=== PATIENT | male | born 1950 | race Caucasian/White ===

== ENCOUNTER 2018-01-12 12:28 | Emergency (ER) | payer MEDICARE, OTHER ==
[2018-01-12 12:41] VITALS: RESP 20
--- NOTE | 2018-01-12 12:56 | ED ---
General Adult HPI - General Chief complaint: Recheck/Abnormal Lab/Rx Stated complaint: clogged peg tube Time Seen by Provider: 01/12/18 12:28 Source: patient, EMS, RN notes reviewed Mode of arrival: EMS - History of Present Illness Initial comments: This is a 67-year-old male who has a PEG tube he is brought in for evaluation of a plugged PEG tube. Apparently at the home he is at a try using Werners and other methods and could not free the clogged. - Related Data Home Medications Medication Instructions Recorded Confirmed Acetaminophen Tab [Tylenol Tab] 650 mg PEG/G-TUBE Q8H PRN 01/12/18 01/12/18 Acetaminophen Tab [Tylenol Tab] 650 mg PEG/G-TUBE TID@,,01/12/18 01/12/18 Albuterol Nebulized [Ventolin 2.5 mg INHALATION RT-Q6H PRN 01/12/18 01/12/18 Nebulized] Amantadine Hcl Syrup 50mg/5ml 100 mg PEG/G-TUBE BID 01/12/18 01/12/18 Apixaban [Eliquis] 5 mg PEG/G-TUBE BID 01/12/18 01/12/18 Cyclobenzaprine [Flexeril] 10 mg PEG/G-TUBE TID PRN 01/12/18 01/12/18 DULoxetine HCL [Cymbalta] 30 mg PEG/G-TUBE BID 01/12/18 01/12/18 Diltiazem Oral [Cardizem Oral] 60 mg PEG/G-TUBE QID@05,11,17,23 01/12/18 Docusate Oral Soln [Colace Oral 100 mg PEG/G-TUBE BID PRN 01/12/18 01/12/18 Soln] Gabapentin Oral Soln [Neurontin 100 mg PEG/G-TUBE TID@,,01/12/18 01/12/18 Oral Soln] Glucerna 1.5 Esteban 70 ml PEG/G-TUBE DIRECTED 01/12/18 01/12/18 Metoprolol Tartrate [Lopressor] 25 mg PEG/G-TUBE BID 01/12/18 01/12/18 Potassium Chloride ER [K-Dur 10] 10 meq PEG/G-TUBE HS 01/12/18 01/12/18 Thiamine [Vitamin B-1] 100 mg PEG/G-TUBE HS 01/12/18 01/12/18 levETIRAcetam 1,000 mg PEG/G-TUBE BID@07,19 01/12/18 01/12/18 traMADol HCl [Ultram] 50 mg PEG/G-TUBE Q48H 01/12/18 01/12/18 Allergies Allergy/AdvReac Type Severity Reaction Status Date / Time No Known Allergies Allergy Unverified 01/12/18 12:41 Review of Systems ROS Statement: Those systems with pertinent positive or pertinent negative responses have been documented in the HPI. ROS Other: All systems not noted in ROS Statement are negative. Past Medical History Past Medical History: Atrial Fibrillation, CVA/TIA, Diabetes Mellitus, Hypertension History of Any Multi-Drug Resistant Organisms: None Reported Additional Past Surgical History / Comment(s): Brain surgery, hip Past Psychological History: No Psychological Hx Reported Smoking Status: Former smoker Past Alcohol Use History: None Reported Past Drug Use History: None Reported General Exam - General Exam Comments Initial Comments: This is a well-developed well-nourished awake alert male General appearance: alert, in no apparent distress Head exam: Present: atraumatic, normocephalic, normal inspection Eye exam: Present: normal appearance, PERRL, EOMI. Absent: scleral icterus, conjunctival injection, periorbital swelling ENT exam: Present: normal exam, mucous membranes moist Neck exam: Present: normal inspection. Absent: tenderness, meningismus, lymphadenopathy Respiratory exam: Present: normal lung sounds bilaterally. Absent: respiratory distress, wheezes, rales, rhonchi, stridor Cardiovascular Exam: Present: regular rate, normal rhythm, normal heart sounds. Absent: systolic murmur, diastolic murmur, rubs, gallop, clicks GI/Abdominal exam: Present: soft, normal bowel sounds, other (PEG tube site appears to be intact no evidence of any drainage or erythema and infectious process). Absent: distended, tenderness, guarding, rebound, rigid Rectal exam: Present: deferred Extremities exam: Present: normal capillary refill Back exam: Absent: tenderness Neurological exam: Present: alert, CN II-XII intact Psychiatric exam: Present: normal affect, normal mood Skin exam: Present: warm, dry, intact, normal color. Absent: rash Course Vital Signs 01/12/18 12:37 Temperature 97.1 F L Pulse Rate 110 H Respiratory 20 Rate Blood Pressure 157/80 O2 Sat by Pulse 97 Oximetry Procedures - Procedures Initial comment: I was able to use a peritoneal dialysis catheter guidewire to unplug the PEG tube. Was able to flush 20 mL of Pepsi-Cola through the line with no leakage. The initial attempts a flushing failed on several attempts. Medical Decision Making - Medical Decision Making The patient PEG tube was cleared and flush is freely he will be discharged Disposition Clinical Impression: PEG tube malfunction Disposition: HOME SELF-CARE Condition: Good Instructions: How to Use and Care for Your PEG Tube (ED) Is patient prescribed a controlled substance at d/c from ED?: No Referrals: Kaycee Eric MD [Primary Care Provider] - 1-2 days
[2018-01-12 15:20] VITALS: BP 144/78; PULSE 91; TEMP 97.6
== END 2018-01-12 15:20 | disposition home or self-care (01) ==
LOC: EC 12:28
DX: K94.23 Gastrostomy malfunction (principal); I48.91 Unspecified atrial fibrillation; E11.9 Type 2 diabetes mellitus without complications; I10 Essential (primary) hypertension; Z86.73 Personal history of transient ischemic attack (TIA), and cerebral infarction without residual deficits; Z87.891 Personal history of nicotine dependence; Z79.01 Long term (current) use of anticoagulants; Z79.84 Long term (current) use of oral hypoglycemic drugs; Z79.899 Other long term (current) drug therapy
CPT/HCPCS: 99282

== ENCOUNTER 2018-01-17 19:44 | Emergency (ER) | payer MEDICARE, OTHER ==
[2018-01-17 19:52] VITALS: BP 148/86; PULSE 84; RESP 19; TEMP 97.8
--- NOTE | 2018-01-17 20:27 | ED ---
General Adult HPI - General Chief complaint: Abdominal Pain Stated complaint: peg tube flush Time Seen by Provider: 01/17/18 20:16 Source: EMS, RN notes reviewed Mode of arrival: EMS - History of Present Illness Initial comments: This is a 67-year-old male who presents to the emergency department with chief complaint of PEG tube not flushing. Patient is a [facility]. He was transported to the emergency department via EMS because the [facility] nurses were unable to flush patient's PEG tube. Patient denies any abdominal pain, nausea or vomiting, diarrhea or constipation. Denies any fevers or chills , chest pain or shortness breath. States he is feeling well. - Related Data Home Medications Medication Instructions Recorded Confirmed Acetaminophen Tab [Tylenol Tab] 650 mg PEG/G-TUBE Q8H PRN 01/12/18 01/12/18 Acetaminophen Tab [Tylenol Tab] 650 mg PEG/G-TUBE TID@05,,01/12/18 01/12/18 Albuterol Nebulized [Ventolin 2.5 mg INHALATION RT-Q6H PRN 01/12/18 01/12/18 Nebulized] Amantadine Hcl Syrup 50mg/5ml 100 mg PEG/G-TUBE BID 01/12/18 01/12/18 Apixaban [Eliquis] 5 mg PEG/G-TUBE BID 01/12/18 01/12/18 Cyclobenzaprine [Flexeril] 10 mg PEG/G-TUBE TID PRN 01/12/18 01/12/18 DULoxetine HCL [Cymbalta] 30 mg PEG/G-TUBE BID 01/12/18 01/12/18 Diltiazem Oral [Cardizem Oral] 60 mg PEG/G-TUBE QID@05,11,17,23 01/12/18 Docusate Oral Soln [Colace Oral 100 mg PEG/G-TUBE BID PRN 01/12/18 01/12/18 Soln] Gabapentin Oral Soln [Neurontin 100 mg PEG/G-TUBE TID@07,13,19 01/12/18 01/12/18 Oral Soln] Glucerna 1.5 Esteban 70 ml PEG/G-TUBE DIRECTED 01/12/18 01/12/18 Metoprolol Tartrate [Lopressor] 25 mg PEG/G-TUBE BID 01/12/18 01/12/18 Potassium Chloride ER [K-Dur 10] 10 meq PEG/G-TUBE HS 01/12/18 01/12/18 Thiamine [Vitamin B-1] 100 mg PEG/G-TUBE HS 01/12/18 01/12/18 levETIRAcetam 1,000 mg PEG/G-TUBE BID@07,19 01/12/18 01/12/18 traMADol HCl [Ultram] 50 mg PEG/G-TUBE Q48H 01/12/18 01/12/18 Allergies Allergy/AdvReac Type Severity Reaction Status Date / Time No Known Allergies Allergy Unverified 01/12/18 12:41 Review of Systems ROS Statement: Those systems with pertinent positive or pertinent negative responses have been documented in the HPI. ROS Other: All systems not noted in ROS Statement are negative. Past Medical History Past Medical History: Atrial Fibrillation, CVA/TIA, Diabetes Mellitus, Hypertension History of Any Multi-Drug Resistant Organisms: None Reported Additional Past Surgical History / Comment(s): Brain surgery, hip Past Psychological History: No Psychological Hx Reported Smoking Status: Former smoker Past Alcohol Use History: None Reported Past Drug Use History: None Reported General Exam - General Exam Comments Initial Comments: General: Awake and alert, well-developed; in no apparent distress. HEENT: Head atraumatic, normocephalic. Pupils are equal, round and reactive to light. Extraocular movements intact. Oropharynx moist without erythema or exudate. Neck: Supple. Normal ROM. Cardiovascular: Regular rate and rhythm. No murmurs, rubs or gallops. Chest symmetrical. Respiratory: Lungs clear to auscultation bilaterally. No wheezes, rales or rhonchi. Normal respiratory effort with no use of accessory muscles. PEG tube is in place. Abdomen: Soft, non-tender, non-distended. No rigidity, rebound or guarding. Normal bowel sounds in all 4 quadrants. Skin: [place], warm and dry without rashes or lesions. Course Vital Signs 01/17/18 19:49 Temperature 97.8 F Pulse Rate 84 Respiratory 19 Rate Blood Pressure 148/86 O2 Sat by Pulse 98 Oximetry Medical Decision Making - Medical Decision Making This is a 67-year-old male who presented to the emergency department to have his PEG tube flushed. He is a resident at [facility] and they were unable to flush his PEG tube this evening. With the bedside states that she does not believe they have been flushing his PEG tube properly. The nurse here in the emergency department was able to flush the PEG tube successfully. Patient denies any abdominal pain. He states he feels well. He will be discharged back to the [facility] at this time. Vital signs are stable and he is in no acute distress. Disposition Clinical Impression: PEG tube malfunction Disposition: HOME SELF-CARE Condition: Good Instructions: How to Use and Care for Your PEG Tube (ED) Additional Instructions: Please flush PEG tube after each use with 30-60 mL of water with a syringe. Please follow up with primary care provider within 1-2 days. Return to emergency department if symptoms should worsen or any concerns arise. Is patient prescribed a controlled substance at d/c from ED?: No Referrals: Kaycee Eric MD [Primary Care Provider] - 1-2 days Time of Disposition: 20:27
== END 2018-01-17 21:19 | disposition home or self-care (01) ==
LOC: EC 19:44
DX: K94.23 Gastrostomy malfunction (principal); I48.91 Unspecified atrial fibrillation; I10 Essential (primary) hypertension; E11.9 Type 2 diabetes mellitus without complications; Z86.73 Personal history of transient ischemic attack (TIA), and cerebral infarction without residual deficits; Z79.01 Long term (current) use of anticoagulants; Z79.84 Long term (current) use of oral hypoglycemic drugs; Z79.891 Long term (current) use of opiate analgesic; Z79.899 Other long term (current) drug therapy; Z87.891 Personal history of nicotine dependence
CPT/HCPCS: 99283

== ENCOUNTER 2018-04-24 18:03 | Emergency (ER) | payer MEDICARE, OTHER ==
--- NOTE | 2018-04-24 18:58 | ED ---
Extremity Problem HPI - General Chief complaint: Extremity Problem,Nontraumatic Stated complaint: hematoma rt foot Time Seen by Provider: 04/24/18 18:05 Source: EMS Mode of arrival: EMS Limitations: physical limitation - History of Present Illness Initial comments: Is a 67-year-old male with a history of CVA on L course who presents emergency department for right foot blister. History is obtained from family at bedside. They state that they blister formed approximately one week ago and has been gradually expanding to the point that it is today. The patient has been treated with Keflex. However there is been no improvement in symptoms. The patient was sent here for evaluation. Patient states it does not hurt however any further history is difficult to be obtained because the patient has a history of aphasia. Denies any other acute complaints. - Related Data Home Medications Medication Instructions Recorded Confirmed Acetaminophen Tab [Tylenol Tab] 650 mg PEG/G-TUBE Q8H PRN 01/12/18 01/12/18 Acetaminophen Tab [Tylenol Tab] 650 mg PEG/G-TUBE TID@05,,01/12/18 01/12/18 Albuterol Nebulized [Ventolin 2.5 mg INHALATION RT-Q6H PRN 01/12/18 01/12/18 Nebulized] Amantadine Hcl Syrup 50mg/5ml 100 mg PEG/G-TUBE BID 01/12/18 01/12/18 Apixaban [Eliquis] 5 mg PEG/G-TUBE BID 01/12/18 01/12/18 Cyclobenzaprine [Flexeril] 10 mg PEG/G-TUBE TID PRN 01/12/18 01/12/18 DULoxetine HCL [Cymbalta] 30 mg PEG/G-TUBE BID 01/12/18 01/12/18 Diltiazem Oral [Cardizem Oral] 60 mg PEG/G-TUBE QID@05,11,17,23 01/12/18 Docusate Oral Soln [Colace Oral 100 mg PEG/G-TUBE BID PRN 01/12/18 01/12/18 Soln] Gabapentin Oral Soln [Neurontin 100 mg PEG/G-TUBE TID@07,13,19 01/12/18 01/12/18 Oral Soln] Glucerna 1.5 Esteban 70 ml PEG/G-TUBE DIRECTED 01/12/18 01/12/18 Metoprolol Tartrate [Lopressor] 25 mg PEG/G-TUBE BID 01/12/18 01/12/18 Potassium Chloride ER [K-Dur 10] 10 meq PEG/G-TUBE HS 01/12/18 01/12/18 Thiamine [Vitamin B-1] 100 mg PEG/G-TUBE HS 01/12/18 01/12/18 levETIRAcetam [levETIRAcetam Oral 1,000 mg PEG/G-TUBE BID@07,19 01/12/18 Solution] traMADol HCl [Ultram] 50 mg PEG/G-TUBE Q48H 01/12/18 01/12/18 Allergies Allergy/AdvReac Type Severity Reaction Status Date / Time No Known Allergies Allergy Unverified 01/12/18 12:41 Review of Systems ROS Statement: Those systems with pertinent positive or pertinent negative responses have been documented in the HPI. ROS Other: All systems not noted in ROS Statement are negative. Past Medical History Past Medical History: Atrial Fibrillation, CVA/TIA, Diabetes Mellitus, Hypertension History of Any Multi-Drug Resistant Organisms: None Reported Additional Past Surgical History / Comment(s): Brain surgery, hip Past Psychological History: No Psychological Hx Reported Smoking Status: Former smoker Past Alcohol Use History: None Reported Past Drug Use History: None Reported General Exam - General Exam Comments Initial Comments: Constitutional: Awake alert Appears comfortable Head: Normocephalic atraumatic Eyes: no conjunctival injection No scleral icterus EOMI Neck: No JVD Supple Heart: Regular rate rhythm normal S1-S2 no murmurs Lungs: Clear to auscultation bilaterally No wheezing No rales Abdomen: Soft nondistended nontender Extremities: Non edematous DP pulses intact Radial pulses intact, there is a hemorrhagic bulla to the right ball of the foot. Extends to the great toe. It is a rock slightly 5-6 cm in diameter. Neuro: A&Ox3, chronic aphasia, chronic lower extremity weakness No focal neurologic deficits Psych: Appropriate mood and affect Limitations: physical limitation Course Vital Signs 04/24/18 18:08 Temperature 98.2 F Pulse Rate 56 L Respiratory 18 Rate Blood Pressure 151/80 O2 Sat by Pulse 99 Oximetry - Reevaluation(s) Reevaluation #1: 04/24/18 19:16 Small incision was made in the hemorrhagic blister and blood and clot was evacuated. The wound was then dressed with bacitracin and a pressure bandage and wrapped with Kerlix. I spoke with the nurse at [facility] in [place]. Her name was Divya Thomas. I instructed her that the bandage needs to be changed twice a day. Bacitracin should be applied twice a day. I recommended that wound care be involved with the patient's wound. Keflex needs to be continued. The patient needs to return to the emergency department for any signs of infection including redness or any purulent drainage. Procedures - Incision & Drainage Consent Obtained: verbal consent Indication: Expanding hemorrhagic blister Site: foot Size (cm): 6 I&D Cleaning Method: Chloroprep Sterile Field Used?: Yes Scalpel Used: #11 Needle Aspiration Performed?: No Irrigation Performed?: No I&D Drainage Obtained: Blood Patient Tolerated Procedure: well Medical Decision Making - Medical Decision Making This is a 67-year-old male who presented for a hemorrhagic blister on his right foot. This had been expanding throughout the week despite any treatment at the nursing facility. He is on antibiotics. There is no evidence for infection on examination at this time. Decision was made to evacuate the blister since it was continuing to expand and was not healing. A large amount of blood and clot was removed through a very small 0.5 cm incision. Patient tolerated this well. A pressure dressing was applied after bacitracin was applied to the area. X- ray was obtained that did not show any evidence for fracture or osteomyelitis. The patient will be sent back to [facility]. I spoke with the nurse there and instructed her on how to care for the wound. I also touch base with Dr. Springer who is the general surgeon on-call for any further recommendations and she recommended Markus bandage for compression which was placed over the dressing that was previously placed. The patient will be continued on Keflex at [facility]. Return to the emergency department for any worsening or changing symptoms. This was expressed to the explicitly that if there is any signs of infection or worsening of the wound he needs to promptly return to the emergency department. Disposition Clinical Impression: Blister Disposition: HOME SELF-CARE Condition: Stable Instructions: Blister (ED) Additional Instructions: Please change the bandage twice a day. Topical antibiotic ointment should be applied twice a day as well. If the bandage is soaked it needs to be changed promptly. Please have wound care evaluate the patient's wound and the bride any tissue that needs to be removed. Please monitor for signs of infection including purulent drainage or redness surrounding the area. Continue with Keflex that was prescribed. General surgery information will be sent with the patient in case there is trouble with wound healing. Is patient prescribed a controlled substance at d/c from ED?: No Referrals: Kaycee Eric MD [Primary Care Provider] - 1-2 days Asia Virk MD [STAFF PHYSICIAN] - 1-2 days
--- NOTE | 2018-04-24 19:18 | XR ---
EXAMINATION TYPE: XR foot complete RT DATE OF EXAM: 04/24/2018 COMPARISON: NONE HISTORY: Foot pain TECHNIQUE: 4 views FINDINGS: There are large plantar and Achilles calcaneal spurs. There is severe multiple hammertoe de formity. I see no fracture nor dislocation. 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 IMPRESSION: Severe hyperextension deformity of the MP joints. No sign of osteomyelitis. Soft tissue s welling of the forefoot.
[2018-04-24 19:46] VITALS: BP 149/79; PULSE 66; RESP 20; TEMP 98.3
== END 2018-04-24 20:21 | disposition home or self-care (01) ==
LOC: EC 18:03
DX: S90.821A Blister (nonthermal), right foot, initial encounter (principal); R47.01 Aphasia; I48.91 Unspecified atrial fibrillation; I10 Essential (primary) hypertension; E11.9 Type 2 diabetes mellitus without complications; Z79.01 Long term (current) use of anticoagulants; Z79.899 Other long term (current) drug therapy; Z86.73 Personal history of transient ischemic attack (TIA), and cerebral infarction without residual deficits; Z87.891 Personal history of nicotine dependence; X58.XXXA Exposure to other specified factors, initial encounter
CPT/HCPCS: 10060; 99283

== ENCOUNTER 2018-09-25 14:37 | Day surgery (SDC) | payer MEDICARE, OTHER ==
[2018-09-24 11:19] VITALS: BMI 38.2
[2018-09-25 12:22] VITALS: RESP 16; TEMP 97.8
--- NOTE | 2018-09-25 13:18 | P.PCN ---
Date of Procedure: 09/25/18 Procedure(s) Performed: BRIEF HISTORY: Patient is a 68-year-old, pleasant, made with history of CVA a year ago at which time he underwent PEG tube placement at [facility]. He still using the PEG tube on a daily basis for nutrition. The PEG tube has been plugging frequently and hence he scheduled for PEG tube replacement today. PROCEDURE PERFORMED: EGD with PEG tube replacement PREOPERATIVE DIAGNOSIS: PEG tube malfunction. IV sedation per anesthesia. PROCEDURE: After informed consent was obtained, the patient was brought into the endoscopy unit. The abdomen was exposed. Attempts to remove the PEG tube by pulling it out from the anterior abdominal wall but because the tube and was only 2 inches long and could not successfully remove it. After this time decided to proceed with an EGD. IV sedation was administered by Anesthesia under continuous monitoring. Initially the Olympus GIF-140 video endoscope was inserted into the mouth. Esophagus intubated without any difficulty. It was gradually advanced into the stomach and duodenum and carefully examined. The bulb and the second part of the duodenum appeared normal. The scope at this time was withdrawn to the stomach, adequately insufflated with air, and upon careful examination, mucosa of the antrum, body, cardia and the fundus appeared normal. The internal bumper of the PEG tube was visualized along the greater curvature of the stomach. At this time applying gentle traction on the anterior abdominal wall with some difficulty and was able to pull the tube out. There was some oozing noted at the site of the gastrostomy. A 20-[place] balloon replacement tube was successfully placed through the existing gastrostomy site into the stomach and the balloon was inflated with 20 mL of sterile water. The scope was then withdrawn into the esophagus. The GE junction was located at 39 cm from the incisors. The esophagus appeared normal. There were no erosions or ulcerations seen and the patient tolerated the procedure well. IMPRESSION: 1. Successful PEG tube replacement as described above. 2. Mild gastritis RECOMMENDATIONS: The findings of this examination were discussed with the patient as well as his family. He can use the PEG tube for feedings today. He was advised to resume eliquis today.
[2018-09-25 13:28] VITALS: BP 144/82; PULSE 67
[~2018-09-25 14:37] MED LIST: LACTATED RINGERS 1,000 ML IV SCH; LIDOCAINE 1% 20 ML VIAL (10MG/ML) FOR IV START INTRADERMA PRN; PROPOFOL 10 MG/ML 20 ML VIAL IV ONE
[2018-09-30 08:35] LABS: Glucose,Whole Blood 91 mg/dL (75-99)
[2018-09-30 08:35] LABS: Glucose,Whole Blood 107 mg/dL (75-99)
== END 2018-09-25 14:38 | disposition home or self-care (01) ==
LOC: ORWHC2ENDO 14:37
PROVIDERS: ATTEND Internal Medicine Gastroenterology
DX: K94.23 Gastrostomy malfunction (principal); K29.70 Gastritis, unspecified, without bleeding; I10 Essential (primary) hypertension; E78.5 Hyperlipidemia, unspecified; I48.91 Unspecified atrial fibrillation; I69.351 Hemiplegia and hemiparesis following cerebral infarction affecting right dominant side; R56.9 Unspecified convulsions; K21.9 Gastro-esophageal reflux disease without esophagitis; Z79.01 Long term (current) use of anticoagulants; Z79.891 Long term (current) use of opiate analgesic; Z79.899 Other long term (current) drug therapy
CPT/HCPCS: 43246; J2704